=== PATIENT | female | born 1960 | race Caucasian/White ===

== ENCOUNTER → 2022-06-17 08:58 | Outpatient (BNVA) | payer SELFPAY | PROVIDERS: PCP Family Medicine; Visit Provider Family Medicine | DX: R42 Dizziness and giddiness (principal) | CPT/HCPCS: 80053; 80061; 81000; 84439; 84443; 85025 ==

== ENCOUNTER 2023-07-14 17:05 | Emergency (ER) | payer SELFPAY ==
[2023-07-14 17:12] VITALS: BP 152/82; PULSE 106; RESP 16; TEMP 36.3; O2SAT 92
--- NOTE | 2023-07-14 17:54 | ED_ITS ---
HPI - General Adult General: Chief complaint: General Medical Stated complaint: tick bite on back and neck Time Seen by Provider: 07/14/23 17:52 History of Present Illness: Patient says she had 2 tick bites about 3 weeks ago. The areas where the cyst has become infected. Is swollen and red. She has had some drainage. She has had a very painful. No systemic fevers. Review of Systems Narrative: Constitutional symptoms: Negative except as documented in HPI. Skin symptoms: Negative except as documented in HPI. Eye symptoms: Negative except as documented in HPI. ENMT symptoms: Negative except as documented in HPI. Respiratory symptoms: Negative except as documented in HPI. Cardiovascular symptoms: Negative except as documented in HPI. Gastrointestinal symptoms: Negative except as documented in HPI. Genitourinary symptoms: Negative except as documented in HPI. Musculoskeletal symptoms: Negative except as documented in HPI. Neurologic symptoms: Negative except as documented in HPI. Psychiatric symptoms: Negative except as documented in HPI. Endocrine symptoms: Negative except as documented in HPI. PFSH ED PFSH: Medical History Depression Vertigo History of ganglion cyst History of cervical cancer History of skin cancer Surgical History History of History of loop electrical excision procedure (LEEP) Family History Mother Cancer leukemia Father Cancer lung Other Diabetes Lung disease Denies family history of CAD (coronary artery disease) Clotting disorder Dementia Hyperlipidemia Psychiatric illness Chronic kidney disease (CKD) Anesthesia complication Bleeding disorder Hypertension Stroke Social History Smoking and tobacco/nicotine status: former use of tobacco/nicotine Quit status (tobacco/nicotine): has quit using Year quit tobacco: 2019 Former quit date comment: 40PY Alcohol intake: never Substance/Drug Use: never Lives independently: Yes Marital status: Number of children: 2 Current occupational status: unemployed Special sandhya needs: No Agree to transfusion: Yes Physical Exam Narrative: EXAM NARRATIVE: General: Alert, no acute distress. Skin: warm and dry, 2 lesions 1 on the neck just below the ear and 1 on her back just below her neck that appear to be cellulitic. Possibly some mild central drainage but really no fluctuance and do not appear like they need to be drained today. Head: Normocephalic Neck: Trachea midline Eye: Extraocular movements are intact. Ears, nose, mouth and throat: Oral mucosa moist Respiratory: Respirations are non-labored Musculoskeletal: Normal ROM Neurological: Alert and oriented, No focal neurological deficit observed. Psychiatric: Cooperative, appropriate mood & affect. Course Vital Signs: Vital signs: Vital Signs Temperature 97.3 F L 07/14/23 17:12 Pulse Rate 106 H 07/14/23 17:12 Respiratory Rate 16 07/14/23 17:12 Blood Pressure 152/82 07/14/23 17:12 Pulse Oximetry 92 07/14/23 17:12 Oxygen Delivery Me thod Room Air 07/14/23 17:12 MDM - General Adult Medical Decision Making Assessment and plan: Cellulitis - Discharged home - Discussed plan with patient. Answered any questions. - Evaluation and treatment of this problem were appropriate in the emergency setting. No radiology studies performed this visit Discharge Plan Discharge Patient Disposition: Home Clinical Impression: Cellulitis Condition: Stable Prescriptions: New doxycycline hyclate 100 mg capsule 100 mg PO BID 10 Days Qty: 20 0RF diclofenac sodium 50 mg tablet,delayed release (DR/EC) 50 mg PO Q12H Qty: 20 0RF No Action sertraline [Zoloft] 100 mg tablet 100 mg PO DAILY Qty: 90 2RF meclizine 12.5 mg tablet 12.5 mg PO TID PRN (Reason: dizziness) Qty: 90 1RF Discharge Orders: Discharge ED (Routine); Ordered 07/14/23 Ordered By: Sandra Payne Referrals: You Noyola MD [Primary Care Provider] - 4-7 days Discharge Diet: Usual diet Discharge Activity: Increase activity as tolerated Patient Instructions: Cellulitis (ED) Activity Restrictions/Additional Instructions: Thank you for choosing [facility] for your healthcare needs today. Please realize this is an emergency room and that we are providing you with a medical screening exam and this may not be complete and all inclusive of all the testing and or work up that you may need to determine your ailment or severity of your illness. You have been screened and evaluated and felt safe for discharge. Health conditions do change or evolve sometimes and as such it is important that you follow up with your Primary Doctor to be re checked, 3-5 days is a general good time frame for follow up. You are always welcome to return to the ED for re assessment if your symptoms are worsening or you have new concerns Coding Level of Care Code ED Research Compliance Specialist for Sanjeev Rubio
[2023-07-14] MEDS: lidocaine 2% INJ 20 mL INJECTION (18:44)
[2023-07-14] MEDS: HYDROcodone-acetaminophen 10-325 mg Tablet 1 TAB PO (18:47)
[2023-07-14] MEDS: doxycycline 100 mg Tablet PO (18:47)
== END 2023-07-14 18:59 | disposition home or self-care (01) ==
PROVIDERS: Emergency Provider Emergency Medicine; PCP Family Medicine
DX: L03.221 Cellulitis of neck (principal); Z87.891 Personal history of nicotine dependence; Z85.41 Personal history of malignant neoplasm of cervix uteri; Z85.828 Personal history of other malignant neoplasm of skin
CPT/HCPCS: 99283

== ENCOUNTER 2023-08-21 12:29 | Emergency (ER) | payer SELFPAY ==
[2023-08-21 12:36] VITALS: BP 134/87; PULSE 90; RESP 16; TEMP 36.1; BMI 26.5
--- NOTE | 2023-08-21 12:46 | ED_ITS ---
HPI - Skin/Abscess/Foreign Bdy 2 General: Chief complaint: Skin/Abscess/Foreign Body Stated complaint: spider bite Time Seen by Provider: 08/21/23 12:44 Source: patient Mode of arrival: ambulatory Limitations: no limitations History of Present Illness: Patient is a 63-year-old female presents to ED today with complaint of a scalp abscess. Patient states she recently got over a similar lesion to her back that was presumably a brown recluse bite. She states she required wound care to get this to heal. She states a few days ago she noticed a similar lesion developing to the back of her scalp. She states she is currently on Bactrim and has had 2 days of this antibiotic. States she has attempted to drain at home. No known history of staph/MRSA. States she has seen several brown recluses in her home. MD complaint: abscess/boil Onset (ago): day(s) Tetanus up to date: yes Location: head Severity: moderate Pain Consistency: constant Relieving factors: none Exacerbating factors: none Context: none Associated symptoms: Reports no associated symptoms; Deny fever(s), nausea or vomiting Treatments prior to arrival: attempted to drain pus at home and antibiotic Review of Systems 2 Const: Denies: fever(s) Eyes: Denies: change in vision or blurry vision GI: Denies: nausea or vomiting Musc: Denies: neck pain Skin/Breast: Reports: other (scalp abscess) Neuro: Denies: headache(s), numbness in extremities, weakness in extremities, sensory changes or dizziness PFSH ED 2 PFSH: Medical History Depression Vertigo History of ganglion cyst History of cervical cancer History of skin cancer Surgical History History of History of loop electrical excision procedure (LEEP) Family History Mother Cancer leukemia Father Cancer lung Other Diabetes Lung disease Denies family history of CAD (coronary artery disease) Clotting disorder Dementia Hyperlipidemia Psychiatric illness Chronic kidney disease (CKD) Anesthesia complication Bleeding disorder Hypertension Stroke Social History Smoking and tobacco/nicotine status: former use of tobacco/nicotine Quit status (tobacco/nicotine): has quit using Year quit tobacco: 2019 Former quit date comment: 40PY Alcohol intake: never Substance/Drug Use: never Lives independently: Yes Marital status: Number of children: 2 Current occupational status: unemployed Special sandhya needs: No Agree to transfusion: Yes Physical Exam 2 Const: COMMON NORMALS: no acute distress, average body habitus, patient oriented x3, no limitations, alert and well nourished HENMT: COMMON NORMALS: normocephalic and atraumatic HEAD & SCALP: normal to inspection, normocephalic and atraumatic HEAD IMAGES: 1. fluctuant abscess FACE & SINUS: normal facial exam Neck/C-Spine: COMMON NORMALS: full ROM and no lymphadenopathy GENERAL: Yes normal visual inspection Neuro: COMMON NORMALS: patient oriented x3 SENSORIUM/ORIENTATION: Yes alert Procedures Abscess I/D Site: scalp Side (if applicable): right Local Anesthetic: lidocaine 1% and with epi Amount of anesthesia used (mL): 2.0 Technique: incised with #11 blade Amount of fluid expressed (mL): 5.0 Packing used?: plain Course 2 Vital Signs: Vital signs: Vital Signs Temperature 97 F L 08/21/23 12:36 Pulse Rate 90 08/21/23 12:36 Respiratory Rate 16 08/21/23 12:36 Blood Pressure 134/87 08/21/23 12:36 Oxygen Delivery Me thod Room Air 08/21/23 12:36 MDM - Skin/Abscess/Foreign Bdy Medicial Decision Making Patient here with a fluctuant scalp abscess. This underwent incision and drainage with purulent material expressed. Culture obtained. Wound was packed. She will continue her Bactrim. It is written for 2 tabs twice daily. Patient states she has only been taking 1 tab twice daily. Recommend she continue to follow-up with her primary care provider in 2-3 days for wound re-examination/re-packing. She may require wound care as she did with the previous similar lesion. Return precautions given. Medical Records I reviewed the patient's medical records. No radiology studies performed this visit Discharge Plan Discharge Patient Disposition: Home Clinical Impression: Abscess of scalp Condition: Stable Prescriptions: No Action sertraline [Zoloft] 100 mg tablet 100 mg PO DAILY Qty: 90 2RF meclizine 12.5 mg tablet 12.5 mg PO TID PRN (Reason: dizziness) Qty: 90 1RF naproxen 500 mg tablet 500 mg PO BID PRN (Reason: pain) Qty: 20 0RF sulfamethoxazole-trimethoprim [Bactrim DS] 800-160 mg tablet 2 tab PO BID 7 Days Qty: 28 0RF diclofenac sodium 50 mg tablet,delayed release (DR/EC) 50 mg PO Q12H Qty: 20 0RF Discharge Orders: Discharge ED (Routine); Ordered 08/21/23 Ordered By: Sameera Alcala Referrals: You Noyola MD [Primary Care Provider] - Patient Instructions: Abscess (ED), Abscess Follow-up (ED), Abscess Incision and Drainage (DC) Activity Restrictions/Additional Instructions: Keep wound clean with warm soap and water. Avoid any further picking. Be careful not to accidentally remove your packing. You need to follow-up with primary care or wound care in 2 to 3 days for wound reassessment/repacking. Begin taking your antibiotics as they are written (2 tabs twice daily). You may return to the emergency department for worsening pain, swelling, drainage, fevers, severe headache, or any other concerns you may have. Coding Level of Care Code ED Signal Person for Sanjeev Rubio
== END 2023-08-21 13:55 | disposition home or self-care (01) ==
PROVIDERS: Emergency Provider Physician Assistant; PCP Family Medicine
DX: L02.811 Cutaneous abscess of head [any part, except face] (principal); Z87.891 Personal history of nicotine dependence; Z85.41 Personal history of malignant neoplasm of cervix uteri; Z85.820 Personal history of malignant melanoma of skin
CPT/HCPCS: 10060; 99281